=== PATIENT | female | born 1990 | race Caucasian/White ===

== ENCOUNTER 2021-10-01 14:30 | Inpatient (IN) | payer OTHER ==
[~2021-10-01 14:30] MED LIST: ELECTROLYTE-148 SOLN 1,000 ML IV ONE
[2021-10-01] MEDS ORDERED: AMPICILLIN SODIUM 2 GM VIAL ONE (15:41)
[2021-10-01] MEDS ORDERED: AMPICILLIN - 2 GM in SODIUM CHLORIDE 100 ML IVPB ONE (15:45)
[2021-10-01 16:09] LABS: INR 0.95 (0.83-1.09); PROTHROMBIN TIME (PATIENT) 10.9 SEC (9.7-13.0)
[2021-10-01 16:11] LABS: ACTIVATED PTT 25.6 SECONDS (25.2-36.5)
[2021-10-01] MEDS: ELECTROLYTE-148 SOLN 1,000 ML IV SCH (16:15)
[2021-10-01 16:17] LABS: CALCIUM 8.7 mg/dL (8.5-10.1)
[2021-10-01 16:21] VITALS: BMI 29.8
[2021-10-01 16:21] LABS: CREATININE 0.8 mg/dL (0.55-1.3)
[2021-10-01 16:33] LABS: BASO % 0.7 % (0-2.0); EOS % 1.9 % (0-4.5); HEMATOCRIT 30.1 % (32.4-45.2); HEMOGLOBIN 9.6 GM/dL (10.7-15.3); LYMPH % 23.4 % (8-40); MCH 23.2 pg (25.7-33.7); MEAN CELL VOLUME 72.6 fl (80-96); MEAN PLT VOLUME 8.4 fl (7.5-11.1); MONO % 9.1 % (3.8-10.2); NEUT % 64.9 % (42.8-82.8); PLATELET COUNT 205 10^3/uL (134-434); RBC 4.15 M/mm3 (3.60-5.2); RDW 16.6 % (11.6-15.6); WHITE BLOOD COUNT 7.2 K/mm3 (4.0-10.0)
[2021-10-01 16:55] LABS: SYPHILIS W/ RPR CONF NON-REACTIVE (NONREACTIVE)
[2021-10-01 17:23] LABS: HIV INTERPRETATION NEGATIVE (NEGATIVE)
[2021-10-01] MEDS: DEXTROSE 5%-LACTATED RINGERS 1,000 ML IV SCH (17:55)
[2021-10-01] MEDS ORDERED: ONDANSETRON 4 MG/2 ML VIAL IVPUSH PRN (17:56)
[2021-10-01] MEDS ORDERED: morphine SULFATE/PF 1 MG/2 ML (2cc Syringe - QUVA) EP ONE (17:56)
[2021-10-01] MEDS ORDERED: morphine SULFATE/PF 1 MG/2 ML (2cc Syringe - QUVA) ONE (19:04)
[2021-10-01] MEDS ORDERED: SODIUM CHLORIDE 0.9% P/F 10 ML VIAL IJ ONE (19:05)
[2021-10-01] MEDS ORDERED: ceFAZolin SODIUM 1 GM VIAL ONE (19:05)
[2021-10-01] MEDS ORDERED: PHENYLEPHRINE HCL 10 MG/1 ML SINGLE DOSE VIAL ONE (19:17)
[2021-10-01] MEDS ORDERED: OXYTOCIN 10 UNITS/ML VIAL ONE (19:24)
[2021-10-01] MEDS ORDERED: ONDANSETRON 4 MG/2 ML VIAL ONE (19:36)
[2021-10-01] MEDS ORDERED: AMPICILLIN - 1 GM in SODIUM CHLORIDE 100 ML IVPB SCH (19:45)
[2021-10-01] MEDS ORDERED: ACETAMINOPHEN 325 MG TABLET (FP) PO PRN (20:19)
[2021-10-01] MEDS ORDERED: SENNOSIDES/DOCUSATE COMBO (SENNA PLUS) TABLET (UD) PO PRN (20:19)
[2021-10-01] MEDS ORDERED: METHYLERGONOVINE MALEATE 0.2 MG/1 ML AMP IM PRN (20:19)
[2021-10-01] MEDS ORDERED: ACETAMINOPHEN 1000 MG/100 ML BAG IVPB PRN (20:21)
[2021-10-01] MEDS: OXYTOCIN 20 UNITS in 0.9% NS 20 UNIT/1,000 ML INFUS.BAG IV SCH (20:30)
[2021-10-02] MEDS: OXYTOCIN 20 UNITS in 0.9% NS 20 UNIT/1,000 ML INFUS.BAG IV SCH (02:47)
[2021-10-02] MEDS: IBUPROFEN 800 MG/8 ML IJ IVPB PRN ×2 (02:48→12:12)
[2021-10-02] MEDS ORDERED: oxyCODONE HCL 5 MG TABLET PO PRN (08:19)
[2021-10-02 09:11] LABS: BASO % 0.4 % (0-2.0); EOS % 0.9 % (0-4.5); HEMATOCRIT 26.9 % (32.4-45.2); HEMOGLOBIN 8.9 GM/dL (10.7-15.3); LYMPH % 16.9 % (8-40); MCH 23.8 pg (25.7-33.7); MCHC 33.1 g/dl (32.0-36.0); MEAN CELL VOLUME 71.8 fl (80-96); MEAN PLT VOLUME 7.9 fl (7.5-11.1); MONO % 7.5 % (3.8-10.2); NEUT % 74.3 % (42.8-82.8); PLATELET COUNT 166 10^3/uL (134-434); RBC 3.75 M/mm3 (3.60-5.2); RDW 16.5 % (11.6-15.6); WHITE BLOOD COUNT 8.3 K/mm3 (4.0-10.0)
[2021-10-02] MEDS: FERROUS SO4 325 MG TABLET (FP) PO SCH ×2 (09:44→17:03)
[2021-10-02] MEDS: PRENATAL VITAMINS W/ FOLIC ACID TABLET (FP) PO SCH (10:35)
[2021-10-02] MEDS ORDERED: BISACODYL 10 MG SUPP.RECT RC PRN (20:19)
[2021-10-02] MEDS: oxyCODONE HCL 5 MG TABLET PO PRN (21:01)
[2021-10-02] MEDS: SIMETHICONE 80 MG TAB.CHEW (FP) PO PRN (21:01)
[2021-10-03] MEDS: SIMETHICONE 80 MG TAB.CHEW (FP) PO PRN ×3 (02:36→22:35)
[2021-10-03] MEDS: DEXTROSE 5%-LACTATED RINGERS 1,000 ML IV SCH (02:39)
[2021-10-03] MEDS: OXYTOCIN 20 UNITS in 0.9% NS 20 UNIT/1,000 ML INFUS.BAG IV SCH (02:41)
[2021-10-03] MEDS: ELECTROLYTE-148 SOLN 1,000 ML IV SCH (02:41)
[2021-10-03] MEDS: FERROUS SO4 325 MG TABLET (FP) PO SCH ×2 (08:07→17:05)
[2021-10-03] MEDS: IBUPROFEN 600 MG TABLET (FP) PO PRN (08:07)
[2021-10-03] MEDS: PRENATAL VITAMINS W/ FOLIC ACID TABLET (FP) PO SCH (09:20)
[2021-10-03] MEDS: oxyCODONE HCL 5 MG TABLET PO PRN (22:35)
[2021-10-04] MEDS: FERROUS SO4 325 MG TABLET (FP) PO SCH (10:12)
[2021-10-04] MEDS: IBUPROFEN 600 MG TABLET (FP) PO PRN (10:13)
[2021-10-04] MEDS: PRENATAL VITAMINS W/ FOLIC ACID TABLET (FP) PO SCH (10:13)
[2021-10-04] MEDS: SIMETHICONE 80 MG TAB.CHEW (FP) PO PRN (10:13)
[2021-10-04 13:13] VITALS: BP 132/78; PULSE 101; TEMP 98.8
== END 2021-10-04 15:40 | disposition home or self-care (01) | DRG 540 ==
LOC: JLDR 14:30 → J3W 22:00
PROVIDERS: ADMIT Obstetrics & Gynecology; ATTEND Obstetrics & Gynecology
PROC: 10D00Z1 Extraction of Products of Conception, Low, Open Approach (ICD-10-PCS; principal; 2021-10-01)
DX: O42.02 Full-term premature rupture of membranes, onset of labor within 24 hours of rupture (principal); O99.824 Streptococcus B carrier state complicating childbirth; Z3A.38 38 weeks gestation of pregnancy; Z37.0 Single live birth; Z87.442 Personal history of urinary calculi
CPT/HCPCS: 36415; 80048; 85025; 85610; 85730; 86780; 86850; 86900; 86901; 87389; 88307-TC; C9803; U0003; U0005

== ENCOUNTER 2022-06-11 12:42 | Emergency (ER) | payer OTHER ==
[2022-06-11 12:54] VITALS: RESP 18; TEMP 97.7
[2022-06-11 12:57] VITALS: BP 116/77; PULSE 80
[2022-06-11 12:58] VITALS: BMI 25.4
[2022-06-11] MEDS ORDERED: ALBUTEROL SO4 HFA INHALER IH ONE ×2 (15:26→15:43)
[2022-06-11 16:02] LABS: BASO % 1.3 % (0-2.0); EOS % 6.5 % (0-4.5); HEMATOCRIT 38.9 % (32.4-45.2); HEMOGLOBIN 12.3 GM/dL (10.7-15.3); LYMPH % 51.8 % (8-40); MCH 24.9 pg (25.7-33.7); MCHC 31.7 g/dl (32.0-36.0); MEAN CELL VOLUME 78.6 fl (80-96); MEAN PLT VOLUME 7.6 fl (7.5-11.1); MONO % 4.7 % (3.8-10.2); NEUT % 35.7 % (42.8-82.8); PLATELET COUNT 290 10^3/uL (134-434); RBC 4.95 M/mm3 (3.60-5.2); RDW 14.6 % (11.6-15.6); WHITE BLOOD COUNT 5.6 K/mm3 (4.0-10.0)
[2022-06-11 16:22] LABS: CALCIUM 9.4 mg/dL (8.5-10.1)
[2022-06-11 16:23] LABS: ALBUMIN 3.8 g/dl (3.4-5.0); BLOOD UREA NITROGEN 14.1 mg/dL (7-18)
[2022-06-11 16:26] LABS: CREATININE 0.7 mg/dL (0.55-1.3)
[2022-06-11 16:28] LABS: BILIRUBIN,TOTAL 0.7 mg/dL (0.2-1); TOT PROT 7.5 g/dl (6.4-8.2)
== END 2022-06-11 18:04 | disposition home or self-care (01) ==
LOC: JER 12:42
DX: R06.02 Shortness of breath (principal); R07.9 Chest pain, unspecified
CPT/HCPCS: 0241U-QW; 36415; 71046-TC-FY; 80053; 84484; 84703; 85025; 93005; 93010; 93308; 99285-25